=== PATIENT | female | born 1965 | race Caucasian/White ===

== ENCOUNTER 2016-07-25 08:42 | Outpatient (CLI) | payer OTHER ==
--- NOTE | 2016-07-25 10:14 | DIAGNOSTIC IMAGING REPORT ---
PROCEDURE: DEXA BONE DENSITY STUDY CLINICAL INDICATION: OSTEOPENIA COMPARISON: DEXA 05/14/2013 FINDINGS: LUMBAR SPINE: Bone mineral density 0.828 g/cm2, T score -2.0 osteopenia which represents a 4.3% decrease since the previous study LEFT HIP: Bone mineral density 0.772 g/cm2, T score -1.4 osteopenia which represents a 9% improvement since the previous study LEFT FEMORAL NECK: Bone mineral density 0.676 g/cm2, T score -1.6 osteopenia which represents an 11.6% improvement since the previous study FRACTURE RISK CALCULATION ( when applicable): 10-year fracture risk of a major osteoporotic fracture 8.4% and of a hip fracture 0.8% (T score greater or equal to -1.0 to: NORMAL) (T score from -1.1 to -2.4: OSTEOPENIA) (T score ess than or equal to -2.5: OSTEOPOROSIS) IMPRESSION: 1. Osteopenia spine hip and femoral neck with improvements of 4.3%, 9% and 11.6% since the previous study.
--- NOTE | 2016-07-25 10:37 | DIAGNOSTIC IMAGING REPORT ---
PROCEDURE: US COMPLETE PELVIC W/TRANSVAG INDICATION: PELVIC PAIN TECHNIQUE: Transabdominal and endovaginal berrios scale and color Doppler sonographic images of the female pelvis were obtained. COMPARISON: Pelvic ultrasound dated 12/08/2013 FINDINGS: TRANSABDOMINAL SCANS: The uterus is of normal size 4.9 x 5.8 x 4.4 cm Kidneys are normal. TRANSVAGINAL SCANS: The uterus is retroverted Myometrium is diffusely heterogeneous and contains a two fibroids, one measuring 2.2 cm and the other measuring 12 mm. The endometrium measures 5 mm. multiple Nabothian cysts are seen. Right ovary is normal measuring 3.3 cm The left ovary is normal measuring 3.5 cm IMPRESSION: 1. Retroverted uterus 2. Two fibroids measuring 2.2 cm and 1.2 cm.
== END 2016-07-25 23:00 | disposition home or self-care (01) ==
LOC: US SRH 08:42
DX: N93.8 Other specified abnormal uterine and vaginal bleeding (principal); M85.88 Other specified disorders of bone density and structure, other site; D25.9 Leiomyoma of uterus, unspecified; N85.4 Malposition of uterus